=== PATIENT | male | born 1990 | race Caucasian/White ===

== ENCOUNTER → 2019-04-06 | Emergency (ER) | payer SELFPAY ==
[~2019-04-06] VITALS: Ht 172.7 cm; Wt 73.0 kg
[~2019-04-06] MED LIST: LORAZEPAM 2MG/ML CPJ IV ONE; LORAZEPAM 2MG/ML CPJ IV STA; OLANZAPINE 10 MG/VIAL IM STA; ONDANSETRON HCL 4MG/2ML INJ IV STA; SODIUM CHLORIDE 0.9% 1,000 ML IV ONE
[2019-04-06 02:59] LABS: BASOPHILS % 0.3 % (0.0-2.0); EOSINOPHILS % 0.5 % (0.0-5.0); HEMATOCRIT. 39.9 % (42.0-52.0); HEMOGLOBIN. 13.5 g/dL (14.0-18.0); LYMPHOCYTES % 13.3 % (20.0-50.0); MEAN CORPUSCULAR HEMOGLOBIN 28.8 pg (28.0-32.0); MEAN CORPUSCULAR VOLUME 85.2 fL (80.0-94.0); MEAN PLATELET VOLUME 8.6 fl (7.4-10.4); NEUTROPHILS % 81.9 % (40.0-76.0); PLATELET 244 x1000/uL (130-400); RED BLOOD CELL COUNT 4.68 mill/uL (4.7-6.1); RED CELL DISTRIBUTION WIDTH 14.9 % (11.6-14.6)
[2019-04-06 03:04] LABS: CHLORIDE 113 mEq/L (98-107)
[2019-04-06 03:13] LABS: CREATINE KINASE 612 IU/L (39-308)
[2019-04-06 03:15] LABS: PROTHROMBIN TIME 10.4 sec (9.6-11.0)
[2019-04-06 03:23] LABS: ETHANOL BLOOD 297 mg/dL
[2019-04-06 05:37] LABS: CLARITY URINE CLEAR (CLEAR); COLOR URINE YELLOW (YELLOW); KETONES URINE NEGATIVE (NEGATIVE); LEUKOCYTE ESTERASE URINE NEGATIVE (NEGATIVE); NITRITE URINE NEGATIVE (NEGATIVE); OCCULT BLOOD URINE 1+ (NEGATIVE); PH URINE 5.5 (4.5-8.0); PROTEIN URINE NEGATIVE (NEGATIVE); SPECIFIC GRAVITY URINE 1.007 (1.005-1.030); UROBILINOGEN URINE 0.2 E.U./dL (0.2-1.0)
[2019-04-06 05:59] LABS: *AMPHETAMINES SCREEN URINE NEGATIVE (NEGATIVE); *BARBITURATES SCREEN URINE NEGATIVE (NEGATIVE); *BENZODIAZEPINES SCREEN URINE NEGATIVE (NEGATIVE); *COCAINE SCREEN URINE NEGATIVE (NEGATIVE); CANNABINOID URINE SCREEN PRESUMTIVE POSITIVE (NEGATIVE); PHENCYCLIDINE URINE SCREEN NEGATIVE (NEGATIVE)
[2019-04-06 06:00] LABS: METHADONE URINE SCREEN NEGATIVE (NEGATIVE); OPIATES URINE SCREEN NEGATIVE (NEGATIVE)
[2019-04-06 17:53] VITALS: BP 110/69
== END ==
LOC: ER 00:54
DX: F10.229 Alcohol dependence with intoxication, unspecified (principal); F12.10 Cannabis abuse, uncomplicated; Y90.9 Presence of alcohol in blood, level not specified
CPT/HCPCS: 36415; 80053; 80305; 80320; 81003; 82550; 83690; 85025; 85610; 96374; 96375; 96376; 99283; J2060; J2405; J3490; J7030; G0480